=== PATIENT | male | born 1960 | race African-American/Black ===

== ENCOUNTER 2017-04-22 12:56 | Inpatient (IN) | payer OTHER ==
[2017-04-22 18:14] VITALS: BMI 34.2
--- NOTE | 2017-04-22 21:14 | HP ---
CIWA Score - CIWA Score Nausea/Vomitin-No Nausea/No Vomiting Muscle Tremors: 2 Anxiety: 3 Agitation: 2 Paroxysmal Sweats: 3 Orientation: 1-Uncertain about Date Tacttile Disturbances: 1-Very Mild Itch/Numbness Auditory Disturbances: 0-None Visual Disturbances: 0-None Headache: 0-None Present CIWA-Ar Total Score: 12 Admission ROS BHS - HPI Chief Complaint: WITHDRAWAL SYMPTOMS Allergies/Adverse Reactions: Allergies Allergy/AdvReac Type Severity Reaction Status Date / Time No Known Allergies Allergy Verified 04/22/17 21:10 History of Present Illness: 57 Y.O. MAN WITH AN EXTENSIVE HISTORY OF ALCOHOL AND COCAINE DEPENDENCE IS HERE SEEKING DETOX. HE REPORTS HE COMPLETED DETOX AT [facility] 8 MONTHS AGO BUT STRUGGLES TO MAINTAIN HIS SOBRIETY AND DOES NOT HAVE A SIGNIFICANT PERIOD OF SOBRIETY. Exam Limitations: No Limitations - Ebola screening Have you traveled outside of the country in the last 21 days: No Have you had contact with anyone from an Ebola affected area: No Have you been sick,other than usual withdrawal symptoms: No - Review of Systems Constitutional: Loss of Appetite, Night Sweats, Unintentional Wgt. Loss EENT: reports: Double Vision, Tearing, Nose Congestion Respiratory: reports: Cough, Shortness of Breath Cardiac: reports: No Symptoms Reported GI: reports: No Symptoms Reported : reports: No Symptoms Reported Musculoskeletal: reports: No Symptoms Reported Integumentary: reports: No Symptoms Reported Neuro: reports: No Symptoms reported Endocrine: reports: No Symptoms Reported Hematology: reports: No Symptoms Reported Psychiatric: reports: Judgement Intact, Mood/Affect Appropiate Other Systems: Reviewed and Negative Patient History - Patient Medical History Hx Anemia: No Hx Asthma: No Hx Chronic Obstructive Pulmonary Disease (COPD): No Hx Cancer: No Hx Cardiac Disorders: No Hx Congestive Heart Failure: No Hx Hypertension: Yes (ON MEDS) Hx Hypercholesterolemia: No Hx Pacemaker: No HX Cerebrovascular Accident: No Hx Seizures: No Hx Dementia: No Hx Diabetes: No Hx Gastrointestinal Disorders: No Hx Liver Disease: No Hx Genitourinary Disorders: No Hx Sexually Transmitted Disorders: No Hx Renal Disease (ESRD): No Hx Thyroid Disease: No Hx Human Immunodeficiency Virus (HIV): No Hx Hepatitis C: No Hx Depression: No Hx Suicide Attempt: No Hx Bipolar Disorder: Yes Hx Schizophrenia: No - Patient Surgical History Past Surgical History: No - PPD History Previous Implant?: Yes Documented Results: Negative w/o proof PPD to be Administered?: Yes - Reproductive History Patient is a Female of Child Bearing Age (11 -55 yrs old): No - Smoking Cessation Smoking history: Current every day smoker Have you smoked in the past 12 months: Yes Initiated information on smoking cessation: Yes 'Breaking Loose' booklet given: 04/22/17 - Substance & Tx. History Hx Alcohol Use: Yes Hx Substance Use: Yes Substance Use Type: Alcohol, Cocaine Hx Substance Use Treatment: Yes ([facility]: September,) - Substances Abused Alcohol Route: Oral Frequency: Daily Amount used: 2 PINTS OF LIQUOR Age of first use: 22 Date of Last Use: 04/22/17 Cocaine Route: Inhalation Frequency: Daily Amount used: $150 Age of first use: 22 Date of Last Use: 04/18/17 Family Disease History - Family Disease History Family History: Denies Admission Physical Exam [facility] - Vital Signs Vital Signs: Vital Signs - 24 hr 04/22/17 18:13 Temperature 96.8 F L Pulse Rate 70 Respiratory 18 Rate Blood Pressure 148/74 - Physical General Appearance: Yes: Nourished, Appropriately Dressed, Anxious HEENTM: Yes: Hearing grossly Normal, Normal ENT Inspection, Normocephalic, Normal Voice Respiratory: Yes: Chest Non-Tender, Lungs Clear, Normal Breath Sounds, No Respiratory Distress, No Accessory Muscle Use Neck: Yes: No masses,lesions,Nodules Breast: Yes: Breast Exam Deferred Cardiology: Yes: Regular Rhythm, Regular Rate Abdominal: Yes: Normal Bowel Sounds, Non Tender, Flat, Soft Genitourinary: Yes: Other (NO COMPLAINTS REPORTED) Back: Yes: Normal Inspection Musculoskeletal: Yes: full range of Motion, Gait Steady Extremities: Yes: Normal Capillary Refill, Normal Inspection, Normal Range of Motion, Non-Tender 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, Alert, Motor Strength 5/5, Normal Mood /Affect, Normal Response Integumentary: Yes: Normal Color, Dry, Warm Lymphatic: Yes: Within Normal Limits - Diagnostic (1) Alcohol dependence with uncomplicated withdrawal Current Visit: Yes Status: Chronic (2) Cocaine dependence, uncomplicated Current Visit: Yes Status: Chronic (3) Hypertension Current Visit: Yes Status: Chronic (4) Nicotine dependence Current Visit: Yes Status: Chronic Cleared for Admission [facility] - Detox or Rehab [facility] Level of Care: Medically Managed Detox Regimen/Protocol: Librium [facility] Breath Alcohol Content Breath Alcohol Content: 0 Urine Drug Screen - Results Drug Screen Negative: No Urine Drug Screen Results: ERMA-Cocaine
[2017-04-22] MEDS ORDERED: MENTHOL/PHENOL 1 EACH UD MM PRN (21:38)
[2017-04-22] MEDS ORDERED: guaiFENesin/D-METHORPHAN HB 10 ML UNIT-DOSE CUPS PO PRN (21:38)
[2017-04-22] MEDS ORDERED: LOPERAMIDE HCL 2 MG CAPSULE PO PRN (21:38)
[2017-04-22] MEDS ORDERED: chlordiazePOXIDE HCL 25 MG CAPSULE PO PRN (21:38)
[2017-04-22] MEDS ORDERED: MAG HYDROX/AL HYDROX/SIMETH 30 ML UNIT-DOSE CUP PO PRN (21:38)
[2017-04-22] MEDS ORDERED: MAGNESIUM HYDROX 2400MG/30ML ORAL SUSPENSION 30 ML CUP PO PRN (21:38)
[2017-04-22] MEDS ORDERED: IBUPROFEN 400 MG TABLET (FP) PO PRN (21:38)
[2017-04-22] MEDS ORDERED: MAGNESIUM CITRATE 300 ML BOTTLE PO PRN (21:38)
[2017-04-22] MEDS ORDERED: hydrOXYzine PAMOATE 50 MG CAPSULE (FP) PO PRN (21:38)
[2017-04-22] MEDS ORDERED: P-EPHED 60MG/TRIPROLIDI 2.5MG TABLET PO PRN (21:38)
[2017-04-22] MEDS ORDERED: ACETAMINOPHEN 325 MG TABLET (FP) PO PRN (21:38)
[2017-04-23] MEDS: THIAMINE HCL 100 MG TABLET (FP) PO SCH ×2 (00:08→22:46)
[2017-04-23] MEDS: chlordiazePOXIDE HCL 25 MG CAPSULE PO SCH ×5 (00:51→22:47)
[2017-04-23] MEDS: PRENATAL VITAMINS W/ FOLIC ACID TABLET (FP) PO SCH (10:39)
[2017-04-23] MEDS: ENALAPRIL MALEATE 10 MG TABLET (FP) PO SCH (10:39)
[2017-04-23 10:50] LABS: CHLORIDE 106 mmol/L (98-107); SODIUM 143 mmol/L (136-145)
[2017-04-23 10:51] LABS: HEMATOCRIT 40.6 % (35.4-49); HEMOGLOBIN 13.1 GM/dL (11.7-16.9); MCHC 32.3 g/dl (32.0-35.9); MEAN CELL VOLUME 86.9 fl (80-96); MEAN PLT VOLUME 8.1 fl (7.5-11.1); PLATELET COUNT 122 K/MM3 (134-434); RBC 4.67 M/mm3 (4.00-5.60); RDW 13.6 % (11.9-15.9); WHITE BLOOD COUNT 4.2 K/mm3 (4.0-10.0)
[2017-04-23 10:59] LABS: ALBUMIN 3.1 g/dl (3.4-5.0); ALK PHOS 72 U/L (45-117); ANION GAP 8 (8-16); BILIRUBIN,TOTAL 0.5 mg/dL (0.2-1.0); BLOOD UREA NITROGEN 12 mg/dL (7-18); CO2 29 mmol/L (21-32); CREATININE 1.1 mg/dL (0.7-1.3); GLUCOSE,RANDOM 80 mg/dL (74-106); SGOT/AST 19 U/L (15-37); SGPT/ALT 23 U/L (12-78); TOT PROT 6.1 g/dl (6.4-8.2)
--- NOTE | 2017-04-23 13:10 | CONSULT ---
[facility] Psychiatric Consult - Data Date of interview: 04/23/17 Admission source: [facility] Identifying data: First admission to [facility] for this 57 y/o AA male seeking detox treatment on for alcohol and cocaine dependence.Patient is single, father of one,homeless,unemployed and supported on SSI benefits. Substance Abuse History: Discussed with patient.Confirmed.See details in current [facility] report : Smoking history: Current every day smoker. Have you smoked in the past 12 months: Yes. Initiated information on smoking cessation: Yes. 'Breaking Loose' booklet given: 04/22/17. - Substance & Tx. History. Hx Alcohol Use: Yes. Hx Substance Use: Yes. Substance Use Type: Alcohol, Cocaine. Hx Substance Use Treatment: Yes ([facility]: September,). - Substances Abused. Alcohol. Route: Oral. Frequency: Daily. Amount used: 2 PINTS OF LIQUOR. Age of first use: 22. Date of Last Use: 04/22/17. Cocaine. Route: Inhalation. Frequency: Daily. Amount used: $150. Age of first use: 22. Date of Last Use: 04/18/17 Medical History: Bronchial asthma and hypertension. Psychiatric History: No reported history of psychiaric hospitalizations.Patient reports the diagnosis of Bipolar Disorder.Sees a psychiatrist at the [facility] in [facility].Medicated with abilify 10 mg/day + remeron 45 mg/hs (as per self-report).Last took medications three days ago.Mr Grimaldo denies history of suicide attempts. Physical/Sexual Abuse/Trauma History: Patient denies. Additional Comment: Urine Drug Screen Results: ERMA-Cocaine.Noted. Mental Status Exam - Mental Status Exam Alert and Oriented to: Time, Place Cognitive Function: Good Patient Appearance: Well Groomed Mood: Nervous (dysphoric), Withdrawn, Anxious Affect: Mood Congruent Patient Behavior: Fatigued, Cooperative Speech Pattern: Clear Voice Loudness: Normal Thought Process: Intact, Goal Oriented Thought Disorder: Not Present Hallucinations: Denies Suicidal Ideation: Denies Homicidal Ideation: Denies Insight/Judgement: Poor Sleep: Poorly, Difficulty falling asleep Appetite: Good Muscle strength/Tone: Normal Gait/Station: Normal Psychiatric Findings - Problem List ([place] 1, 2,3) (1) Alcohol dependence with uncomplicated withdrawal Current Visit: Yes Status: Acute (2) Cocaine dependence, uncomplicated Current Visit: Yes Status: Acute (3) Nicotine dependence Current Visit: Yes Status: Acute (4) Substance induced mood disorder Current Visit: Yes Status: Acute (5) Bipolar disorder Current Visit: Yes Status: Acute Comment: Self-report.On abilify.Current OPD care at the [facility] in [facility]. (6) Insomnia Current Visit: Yes Status: Acute - Initial Treatment Plan Initial Treatment Plan: Psychoeducation.Sleep hygiene discussed with patient.Detoxification in progress.Medications : remeron 15 mg po hs (reduced) + abilify 10 mg po daily.Side effects/benefits of both drugs are reviewed with the patient.Titration of remeron to follow if clinically indicated.Mr Grimaldo consents (verbally) to this plan of care.Observation.Pharmacy claims are revisited : NOT informative.
--- NOTE | 2017-04-23 13:46 | PN ---
S CIWA - CIWA Score Nausea/Vomitin Muscle Tremors: 2 Anxiety: 2 Agitation: 2 Paroxysmal Sweats: 2 Orientation: 0-Oriented Tacttile Disturbances: 2-Mild Itch/Numbness/Burn Auditory Disturbances: 0-None Visual Disturbances: 1-Very Mild Sensitivity Headache: 3-Moderate CIWA-Ar Total Score: 16 S Progress Note (SOAP) Subjective: Interrupted sleep, generalized body aches Objective: 04/23/17 13:45 Vital Signs - 8 hr 04/23/17 04/23/17 06:56 09:32 Temperature 98.2 F 96.1 F L Pulse Rate 81 73 Respiratory 18 20 Rate Blood Pressure 136/83 149/84 Laboratory Last Values WBC 4.2 K/mm3 (4.0-10.0) 04/23/17 08:00 RBC 4.67 M/mm3 (4.00-5.60) 04/23/17 08:00 Hgb 13.1 GM/dL (11.7-16.9) 04/23/17 08:00 Hct 40.6 % (35.4-49) 04/23/17 08:00 MCV 86.9 fl (80-96) 04/23/17 08:00 MCH 28.0 pg (25.7-33.7) 04/23/17 08:00 MCHC 32.3 g/dl (32.0-35.9) 04/23/17 08:00 RDW 13.6 % (11.9-15.9) 04/23/17 08:00 Plt Count 122 K/MM3 (134-434) L 04/23/17 08:00 MPV 8.1 fl (7.5-11.1) 04/23/17 08:00 Sodium 143 mmol/L (136-145) 04/23/17 08:00 Potassium 4.0 mmol/L (3.5-5.1) 04/23/17 08:00 Chloride 106 mmol/L (98-107) 04/23/17 08:00 Carbon Dioxide 29 mmol/L (21-32) 04/23/17 08:00 Anion Gap 8 (8-16) 04/23/17 08:00 BUN 12 mg/dL (7-18) 04/23/17 08:00 Creatinine 1.1 mg/dL (0.7-1.3) 04/23/17 08:00 Creat Clearance w eGFR > 60 (>60) 04/23/17 08:00 Random Glucose 80 mg/dL (74-106) 04/23/17 08:00 Calcium 8.0 mg/dL (8.5-10.1) L 04/23/17 08:00 Total Bilirubin 0.5 mg/dL (0.2-1.0) 04/23/17 08:00 AST 19 U/L (15-37) 04/23/17 08:00 ALT 23 U/L (12-78) 04/23/17 08:00 Alkaline Phosphatase 72 U/L (45-117) 04/23/17 08:00 Total Protein 6.1 g/dl (6.4-8.2) L 04/23/17 08:00 Albumin 3.1 g/dl (3.4-5.0) L 04/23/17 08:00 RPR Titer Nonreactive (NONREACTIVE) 04/23/17 08:00 Labs noted Assessment: 04/23/17 13:45 Withdrawal sx Plan: Continue detox
--- NOTE | 2017-04-23 16:43 | EKG ---
Test Reason : Blood Pressure : / mmHG Vent. Rate : 079 BPM Atrial Rate : 079 BPM P-R Int : 152 ms QRS Dur : 084 ms QT Int : 372 ms P-R-T Axes : 071 057 058 degrees QTc Int : 426 ms NORMAL SINUS RHYTHM MINIMAL VOLTAGE CRITERIA FOR LVH, MAY BE NORMAL VARIANT BORDERLINE ECG NO PREVIOUS ECGS AVAILABLE Confirmed by ANTONIO THOMAS MD ([id number]) on 04/23/2017 4:43:34 PM Referred By: Confirmed By:ANTONIO THOMAS MD
[2017-04-23] MEDS: MIRTAZAPINE 15 MG TABLET (FP) PO SCH (22:47)
[2017-04-23 22:56] LABS: URINE APPEARANCE CLEAR; URINE BILIRUBIN NEGATIVE (NEGATIVE); URINE BLOOD NEGATIVE (NEGATIVE); URINE COLOR LTYELLOW; URINE GLUCOSE (UA) NEGATIVE (NEGATIVE); URINE KETONE NEGATIVE (NEGATIVE); URINE LEUK ESTERASE NEGATIVE (NEGATIVE); URINE NITRITE NEGATIVE (NEGATIVE); URINE PROTEIN NEGATIVE (NEGATIVE); URINE UROBILINOGEN NEGATIVE mg/dL (0.2-1.0)
[2017-04-24] MEDS: chlordiazePOXIDE HCL 25 MG CAPSULE PO SCH ×3 (05:27→17:35)
[2017-04-24] MEDS: ARIPiprazole 10 MG TABLET PO SCH (10:41)
[2017-04-24] MEDS: PRENATAL VITAMINS W/ FOLIC ACID TABLET (FP) PO SCH (10:41)
[2017-04-24] MEDS: ENALAPRIL MALEATE 10 MG TABLET (FP) PO SCH (10:41)
--- NOTE | 2017-04-24 18:58 | PN ---
S CIWA - CIWA Score Nausea/Vomitin-No Nausea/No Vomiting Muscle Tremors: 4-Moderate,w/Arms Extend Anxiety: 3 Agitation: 2 Paroxysmal Sweats: 3 Orientation: 2-Disoriented Date<2 days Tacttile Disturbances: 0-None Auditory Disturbances: 1-Very Mild Visual Disturbances: 3-Moderate Sensitivity Headache: 0-None Present CIWA-Ar Total Score: 18 BHS Progress Note (SOAP) Subjective: Sweating, Tremors, Interrupted Sleep. Objective: PT. A & O X 2 (UNCERTAIN ABOUT CURRENT DAY /DATE). NO ACUTE DISTRESS. 04/24/17 18:56 Vital Signs Temperature 97.0 F L 04/24/17 18:20 Pulse Rate 71 04/24/17 18:20 Respiratory Rate 18 04/24/17 18:20 Blood Pressure 134/74 04/24/17 18:20 O2 Sat by Pulse Oximetry (%) Laboratory Tests 04/23/17 04/23/17 04/23/17 08:00 08:00 08:00 WBC 4.2 RBC 4.67 Hgb 13.1 Hct 40.6 MCV 86.9 MCH 28.0 MCHC 32.3 RDW 13.6 Plt Count 122 L MPV 8.1 Sodium 143 Potassium 4.0 Chloride 106 Carbon Dioxide 29 Anion Gap 8 BUN 12 Creatinine 1.1 Creat Clearance w eGFR > 60 Random Glucose 80 Calcium 8.0 L Total Bilirubin 0.5 AST 19 ALT 23 Alkaline Phosphatase 72 Total Protein 6.1 L Albumin 3.1 L Urine Color Urine Appearance Urine pH Ur Specific [place] Urine Protein Urine Glucose (UA) Urine Ketones Urine Blood Urine Nitrite Urine Bilirubin Urine Urobilinogen Ur Leukocyte Esterase RPR Titer Nonreactive 04/23/17 17:14 WBC RBC Hgb Hct MCV MCH MCHC RDW Plt Count MPV Sodium Potassium Chloride Carbon Dioxide Anion Gap BUN Creatinine Creat Clearance w eGFR Random Glucose Calcium Total Bilirubin AST ALT Alkaline Phosphatase Total Protein Albumin Urine Color Ltyellow Urine Appearance Clear Urine pH 7.0 Ur Specific [place] 1.015 Urine Protein Negative Urine Glucose (UA) Negative Urine Ketones Negative Urine Blood Negative Urine Nitrite Negative Urine Bilirubin Negative Urine Urobilinogen Negative Ur Leukocyte Esterase Negative RPR Titer LABS NOTED. Assessment: 04/24/17 18:56 WITHDRAWAL SYMPTOMS. Plan: CONTINUE DETOX. INCREASE DAILY PO FLUID INTAKE.
[2017-04-24] MEDS: MIRTAZAPINE 15 MG TABLET (FP) PO SCH (22:38)
[2017-04-24] MEDS: chlordiazePOXIDE 5 MG CAPSULE PO SCH (22:38)
[2017-04-24] MEDS: THIAMINE HCL 100 MG TABLET (FP) PO SCH (22:38)
[2017-04-25] MEDS: chlordiazePOXIDE 5 MG CAPSULE PO SCH ×3 (06:09→17:11)
[2017-04-25] MEDS: ENALAPRIL MALEATE 10 MG TABLET (FP) PO SCH (10:26)
[2017-04-25] MEDS: PRENATAL VITAMINS W/ FOLIC ACID TABLET (FP) PO SCH (10:26)
[2017-04-25] MEDS: ARIPiprazole 10 MG TABLET PO SCH (10:26)
--- NOTE | 2017-04-25 16:33 | PN ---
BHS Progress Note (SOAP) Subjective: sleepy fatigued Objective: 04/25/17 16:32 Vital Signs Temperature 97.6 F 04/25/17 14:10 Pulse Rate 64 04/25/17 14:10 Respiratory Rate 18 04/25/17 14:10 Blood Pressure 143/78 04/25/17 14:10 O2 Sat by Pulse Oximetry (%) Assessment: 04/25/17 16:32 withdrawal sx Plan: continue detox
[2017-04-25] MEDS: MIRTAZAPINE 15 MG TABLET (FP) PO SCH (22:15)
[2017-04-25] MEDS: chlordiazePOXIDE HCL 10 MG CAPSULE PO SCH (22:15)
[2017-04-25] MEDS: THIAMINE HCL 100 MG TABLET (FP) PO SCH (22:15)
[2017-04-26] MEDS: chlordiazePOXIDE HCL 10 MG CAPSULE PO SCH ×3 (05:24→17:25)
[2017-04-26] MEDS ORDERED: ONDANSETRON *ODT* 4 MG TABLET SL PRN (10:16)
[2017-04-26] MEDS: ARIPiprazole 10 MG TABLET PO SCH (10:23)
[2017-04-26] MEDS: PRENATAL VITAMINS W/ FOLIC ACID TABLET (FP) PO SCH (10:24)
[2017-04-26] MEDS: ENALAPRIL MALEATE 10 MG TABLET (FP) PO SCH (10:24)
--- NOTE | 2017-04-26 13:41 | PN ---
BHS Progress Note (SOAP) Subjective: Stomach Cramping, Vomiting, Body Aches. Objective: PT. A & O X 2 (UNCERTAIN ABOUT CURRENT DAY / DATE). PT. OBSERVED AMBULATING ON UNIT. NO ACUTE DISTRESS. 04/26/17 13:35 Vital Signs Temperature 95.3 F L 04/26/17 13:24 Pulse Rate 75 04/26/17 13:24 Respiratory Rate 75 H 04/26/17 13:24 Blood Pressure 154/81 04/26/17 13:24 O2 Sat by Pulse Oximetry (%) Laboratory Tests 04/23/17 04/23/17 04/23/17 08:00 08:00 08:00 WBC 4.2 RBC 4.67 Hgb 13.1 Hct 40.6 MCV 86.9 MCH 28.0 MCHC 32.3 RDW 13.6 Plt Count 122 L MPV 8.1 Sodium 143 Potassium 4.0 Chloride 106 Carbon Dioxide 29 Anion Gap 8 BUN 12 Creatinine 1.1 Creat Clearance w eGFR > 60 Random Glucose 80 Calcium 8.0 L Total Bilirubin 0.5 AST 19 ALT 23 Alkaline Phosphatase 72 Total Protein 6.1 L Albumin 3.1 L Urine Color Urine Appearance Urine pH Ur Specific [place] Urine Protein Urine Glucose (UA) Urine Ketones Urine Blood Urine Nitrite Urine Bilirubin Urine Urobilinogen Ur Leukocyte Esterase RPR Titer Nonreactive 04/23/17 17:14 WBC RBC Hgb Hct MCV MCH MCHC RDW Plt Count MPV Sodium Potassium Chloride Carbon Dioxide Anion Gap BUN Creatinine Creat Clearance w eGFR Random Glucose Calcium Total Bilirubin AST ALT Alkaline Phosphatase Total Protein Albumin Urine Color Ltyellow Urine Appearance Clear Urine pH 7.0 Ur Specific [place] 1.015 Urine Protein Negative Urine Glucose (UA) Negative Urine Ketones Negative Urine Blood Negative Urine Nitrite Negative Urine Bilirubin Negative Urine Urobilinogen Negative Ur Leukocyte Esterase Negative RPR Titer LABS NOTED. Assessment: 04/26/17 13:37 WITHDRAWAL SYMPTOMS. Plan: CONTINUE DETOX.
[2017-04-26] MEDS: THIAMINE HCL 100 MG TABLET (FP) PO SCH (22:03)
[2017-04-26] MEDS: MIRTAZAPINE 15 MG TABLET (FP) PO SCH (22:03)
[2017-04-27] MEDS: PRENATAL VITAMINS W/ FOLIC ACID TABLET (FP) PO SCH (09:29)
[2017-04-27] MEDS: ENALAPRIL MALEATE 10 MG TABLET (FP) PO SCH (09:29)
[2017-04-27] MEDS: ARIPiprazole 10 MG TABLET PO SCH (09:29)
--- NOTE | 2017-04-27 12:11 | DS ---
[facility] Detox Discharge Summary Admission Date: 04/22/17 Discharge Date: 04/27/17 - History Present History: Alcohol Dependence, Cocaine Dependence Additional Comments: [facility]. PATIENT WAS DISCHARGED FROM DETOX UNIT IN STABLE MEDICAL CONDITION. Pertinent Past History: HTN, Insomnia, Bipolar Disorder, Nicotine Dependence. - Physical Exam Results Vital Signs: Vital Signs Temperature 97.0 F L 04/27/17 09:27 Pulse Rate 72 04/27/17 09:27 Respiratory Rate 18 04/27/17 09:27 Blood Pressure 150/83 04/27/17 09:27 O2 Sat by Pulse Oximetry (%) Pertinent Admission Physical Exam Findings: WITHDRAWAL SYMPTOMS. Laboratory Tests 04/23/17 04/23/17 04/23/17 08:00 08:00 08:00 WBC 4.2 RBC 4.67 Hgb 13.1 Hct 40.6 MCV 86.9 MCH 28.0 MCHC 32.3 RDW 13.6 Plt Count 122 L MPV 8.1 Sodium 143 Potassium 4.0 Chloride 106 Carbon Dioxide 29 Anion Gap 8 BUN 12 Creatinine 1.1 Creat Clearance w eGFR > 60 Random Glucose 80 Calcium 8.0 L Total Bilirubin 0.5 AST 19 ALT 23 Alkaline Phosphatase 72 Total Protein 6.1 L Albumin 3.1 L Urine Color Urine Appearance Urine pH Ur Specific [place] Urine Protein Urine Glucose (UA) Urine Ketones Urine Blood Urine Nitrite Urine Bilirubin Urine Urobilinogen Ur Leukocyte Esterase RPR Titer Nonreactive 04/23/17 17:14 WBC RBC Hgb Hct MCV MCH MCHC RDW Plt Count MPV Sodium Potassium Chloride Carbon Dioxide Anion Gap BUN Creatinine Creat Clearance w eGFR Random Glucose Calcium Total Bilirubin AST ALT Alkaline Phosphatase Total Protein Albumin Urine Color Ltyellow Urine Appearance Clear Urine pH 7.0 Ur Specific [place] 1.015 Urine Protein Negative Urine Glucose (UA) Negative Urine Ketones Negative Urine Blood Negative Urine Nitrite Negative Urine Bilirubin Negative Urine Urobilinogen Negative Ur Leukocyte Esterase Negative RPR Titer LABS NOTED. - Treatment Hospital Course: Detox Protocol Followed, Detoxed Safely, Responded well, Discharged Condition Good, Rehab Referral Accepted Patient has Accepted a Rehab Referral to: [facility] . - Medication Discharge Medications: Ambulatory Orders Aripiprazole [Abilify -] 10 mg PO DAILY 04/22/17 Enalapril Maleate [Vasotec -] PO DAILY 04/22/17 Mirtazapine [Remeron [DO NOT STOCK]] 45 mg PO DAILY 04/22/17 Aripiprazole [Abilify -] 10 mg PO DAILY #30 tablet 04/23/17 Mirtazapine [Remeron -] 15 mg PO HS #30 tablet 04/23/17 - Diagnosis (1) Alcohol dependence with uncomplicated withdrawal Current Visit: Yes Status: Acute (2) Cocaine dependence, uncomplicated Current Visit: Yes Status: Acute (3) Nicotine dependence Current Visit: Yes Status: Acute Qualifiers: Nicotine product type: cigarettes Substance use status: uncomplicated Qualified Code(s): F17.210 - Nicotine dependence, cigarettes, uncomplicated (4) Hypertension Current Visit: Yes Status: Chronic Qualifiers: Hypertension type: unspecified Qualified Code(s): I10 - Essential (primary ) hypertension (5) Bipolar disorder Current Visit: Yes Status: Acute Qualifiers: Active/Remission status: remission status unspecified Qualified Code(s): F31.9 - Bipolar disorder, unspecified (6) Insomnia Current Visit: Yes Status: Acute Qualifiers: Insomnia type: unspecified Qualified Code(s): G47.00 - Insomnia, unspecified (7) Substance induced mood disorder Current Visit: Yes Status: Acute - AMA Did Patient Leave Against Medical Advice: No
--- NOTE | 2017-04-27 13:20 | HP ---
[facility] Rehab Assess/Revision - Admission History Admitted to Rehab from: [facility] Date of Admission to Rehab: 04/27/2017. - Vital signs Vital Signs: Vital Signs Period Temp Pulse Resp BP Sys/Maya Pulse Ox Last 24 Hr 95.3 F-98.7 F 57-77 18-75 127-154/65-83 - Findings Detox History & Physical reviewed: Yes Concur with findings: Yes Comments/Additional Findings: PATIENT'S MEDICAL / MEDICATION HISTORY REVIWED PRIOR TO DISCHARGE FROM DETOX UNIT. PATIENT WAS DISCHARGED FROM DETOX UNIT TO BE TAKEN TO REHAB UNIT IN STABLE MEDICAL CONDITION. Inpatient Rehab Admission - Initial Determination Are CD services needed?: Yes Free of communicable disease: Yes Not in need of hospitalization: Yes - Rehab Admission Criteria Previous failed treatment: Yes Comorbidities: Yes Patient is meeting Inpatient Rehab admission criteria:: Yes
[2017-04-27] MEDS: MIRTAZAPINE 15 MG TABLET (FP) PO SCH (21:47)
[2017-04-27] MEDS: THIAMINE HCL 100 MG TABLET (FP) PO SCH (21:47)
[2017-04-28] MEDS: ARIPiprazole 10 MG TABLET PO SCH (10:28)
[2017-04-28] MEDS: ENALAPRIL MALEATE 10 MG TABLET (FP) PO SCH (10:28)
[2017-04-28] MEDS: PRENATAL VITAMINS W/ FOLIC ACID TABLET (FP) PO SCH (10:28)
--- NOTE | 2017-04-28 14:28 | HP ---
Psychiatrist Admission - Data Date of interview: 04/28/17 Admission source: [facility] Identifying data: [facility] for this 57 year old AA male who is single a father of one, currenlty homeless and unemployed, supported on SSI benefits. Medical History: HTN, Bronchial asthma, smokes cigarettes 1 PPD. Psychiatric History: Patient reports first psychiatric treatment in his childhood, reports he was acting out at the school and was treated with Thorazine, states he wasadmitted twice as a kid. Reports no other psychiatric hospitalizations, was diagnosed as bipolar disorder and sees the psychiatrist at [facility] in [facility] and currently on [id number] mg daily and Remeron 45 mg po hs. Sees by , continue Abilify 10 mg po daily and Remeron 15 mg po hs.Denies history of suicdal attempts. Physical/Sexual Abuse/Trauma History: Denies history of sexual, physical and verbal abuse. Vital Signs: Vital Signs - 24 hr 04/28/17 04/28/17 04/28/17 00:58 03:30 07:24 Temperature 98.5 F Pulse Rate 69 Respiratory 18 18 18 Rate Blood Pressure 149/80 04/28/17 09:23 Temperature Pulse Rate 72 Respiratory 18 Rate Blood Pressure 143/83 Allergies/Adverse Reactions: Allergies Allergy/AdvReac Type Severity Reaction Status Date / Time No Known Allergies Allergy Verified 04/27/17 14:23 Date of last physical exam: 04/22/17 Concur with the findings of this exam: Yes - Substance Abuse/Tx History Hx Alcohol Use: Yes (2 pints of liquor, age of first use 22 ) Hx Substance Use: Yes Substance Use Type: Cocaine (age of first use 22, daily $150) Hx Substance Use Treatment: Yes (detox at [facility]) Mental Status Exam - Mental Status Exam Alert and Oriented to: Time, Place, Person Cognitive Function: Good Patient Appearance: Well Groomed Mood: Hopeful Affect: Appropriate, Mood Congruent Patient Behavior: Appropriate, Cooperative Speech Pattern: Clear, Appropriate Voice Loudness: Normal Thought Process: Intact, Goal Oriented Thought Disorder: Not Present Hallucinations: Denies Suicidal Ideation: Denies Homicidal Ideation: Denies Insight/Judgement: Fair Sleep: Fair Appetite: Fair Muscle strength/Tone: Normal Gait/Station: Normal Psychiatric Findings - Problem List ([place] 1, 2,3) (1) Alcohol dependence Current Visit: Yes Status: Acute (2) Cocaine dependence Current Visit: Yes Status: Acute (3) Bipolar disorder Current Visit: Yes Status: Acute Qualifiers: Active/Remission status: remission status unspecified Qualified Code(s): F31.9 - Bipolar disorder, unspecified Comment: Self-report.On abistefani.Current OPD care at the [facility] in [facility]. (4) Nicotine dependence Current Visit: Yes Status: Acute Qualifiers: Nicotine product type: cigarettes Substance use status: uncomplicated Qualified Code(s): F17.210 - Nicotine dependence, cigarettes, uncomplicated (5) Hypertension Current Visit: Yes Status: Chronic Qualifiers: Hypertension type: unspecified Qualified Code(s): I10 - Essential (primary ) hypertension - Initial Treatment Plan Initial Treatment Plan: will continue current medications, monitor progress as needed.
[2017-04-28] MEDS: THIAMINE HCL 100 MG TABLET (FP) PO SCH (21:48)
[2017-04-28] MEDS: MIRTAZAPINE 15 MG TABLET (FP) PO SCH (21:49)
[2017-04-29] MEDS: ENALAPRIL MALEATE 10 MG TABLET (FP) PO SCH (10:14)
[2017-04-29] MEDS: PRENATAL VITAMINS W/ FOLIC ACID TABLET (FP) PO SCH (10:14)
[2017-04-29] MEDS: ARIPiprazole 10 MG TABLET PO SCH (10:14)
[2017-04-29] MEDS: MIRTAZAPINE 15 MG TABLET (FP) PO SCH (21:38)
[2017-04-29] MEDS: THIAMINE HCL 100 MG TABLET (FP) PO SCH (21:38)
[2017-04-30] MEDS: ENALAPRIL MALEATE 10 MG TABLET (FP) PO SCH (10:23)
[2017-04-30] MEDS: PRENATAL VITAMINS W/ FOLIC ACID TABLET (FP) PO SCH (10:23)
[2017-04-30] MEDS: ARIPiprazole 10 MG TABLET PO SCH (10:23)
[2017-04-30] MEDS: THIAMINE HCL 100 MG TABLET (FP) PO SCH (21:26)
[2017-04-30] MEDS: MIRTAZAPINE 15 MG TABLET (FP) PO SCH (21:27)
[2017-05-01] MEDS: PRENATAL VITAMINS W/ FOLIC ACID TABLET (FP) PO SCH (10:29)
[2017-05-01] MEDS: ARIPiprazole 10 MG TABLET PO SCH (10:29)
[2017-05-01] MEDS: ENALAPRIL MALEATE 10 MG TABLET (FP) PO SCH (10:29)
[2017-05-01] MEDS: THIAMINE HCL 100 MG TABLET (FP) PO SCH (21:26)
[2017-05-01] MEDS: MIRTAZAPINE 15 MG TABLET (FP) PO SCH (21:26)
[2017-05-02] MEDS: PRENATAL VITAMINS W/ FOLIC ACID TABLET (FP) PO SCH (10:31)
[2017-05-02] MEDS: ARIPiprazole 10 MG TABLET PO SCH (10:31)
[2017-05-02] MEDS: ENALAPRIL MALEATE 10 MG TABLET (FP) PO SCH (10:31)
[2017-05-02] MEDS: MIRTAZAPINE 15 MG TABLET (FP) PO SCH (21:48)
[2017-05-02] MEDS: THIAMINE HCL 100 MG TABLET (FP) PO SCH (21:48)
[2017-05-03] MEDS: PRENATAL VITAMINS W/ FOLIC ACID TABLET (FP) PO SCH (10:20)
[2017-05-03] MEDS: ENALAPRIL MALEATE 10 MG TABLET (FP) PO SCH (10:21)
[2017-05-03] MEDS: ARIPiprazole 10 MG TABLET PO SCH (10:21)
--- NOTE | 2017-05-03 10:44 | PN ---
Psychiatric Progress Note Vital Signs: Vital Signs Period Temp Pulse Resp BP Sys/Maya Pulse Ox Last 24 Hr 98.0 F 69 18-20 145/83 Date of Session: 05/03/17 Chief Complaint:: progress update HPI: Patient is addressing alcohol, cocaine, nicotine dependence comorbid bipolar I disorder. ROS: HTN, Bronchial asthma medically managed. Current Medications: Active Medications Generic Name Dose Route Start Last Admin Trade Name Freq PRN Reason Stop Dose Admin Acetaminophen 650 mg 04/22/17 21:38 Tylenol - PO Q4H PRN FEVER Al Hydroxide/Mg Hydroxide 30 ml 04/22/17 21:38 Mylanta Oral Suspension - PO Q6H PRN DYSPEPSIA Aripiprazole 10 mg 04/24/17 10:00 05/03/17 10:21 Abilify PO 10 mg DAILY LIAT Administration Enalapril Maleate 10 mg 04/23/17 10:00 05/03/17 10:21 Vasotec - PO 10 mg DAILY LIAT Administration Eucalyptus/Menthol/Phenol/Sorbitol 1 each 04/22/17 21:38 Cepastat Lozenge - MM Q4H PRN SORE THROAT Guaifenesin 10 ml 04/22/17 21:38 Robitussin Dm - PO Q6H PRN COUGH Hydroxyzine Pamoate 50 mg 04/22/17 21:38 Vistaril - PO Q4H PRN AGITATION Ibuprofen 400 mg 04/22/17 21:38 Motrin - PO Q6H PRN PAIN LEVEL 4-6 Loperamide HCl 4 mg 04/22/17 21:38 Imodium - PO Q6H PRN DIARRHEA Magnesium Citrate 300 ml 04/22/17 21:38 Citroma - PO Q48H PRN CONSTIPATION Magnesium Hydroxide 30 ml 04/22/17 21:38 Milk Of Magnesia - PO DAILY PRN CONSTIPATION Ondansetron HCl 4 mg 04/26/17 10:16 Zofran Odt - SL Q8H PRN NAUSEA AND/OR VOMITING Multivit/Folic Acid/Iron 1 tab 04/23/17 10:00 05/03/17 10:20 Vitamins (Sjr) - PO 1 tab DAILY LIAT Administration Pseudoephedrine/Triprolidine 1 combo 04/22/17 21:38 Actifed - PO TID PRN NASAL CONGESTION Quetiapine Fumarate 50 mg 05/03/17 22:00 Seroquel - PO HS LIAT Thiamine HCl 100 mg 04/22/17 22:00 05/02/17 21:48 Vitamin B1 - PO 100 mg HS LIAT Administration Medication(s) Change(s): d/c Remeron, add Seroquel 50 mg po hs Current Side Effect: No Lab tests ordered: No Lab tests reviewed: Yes Provider note:: Patient was seen today, reports has been feeling irritable and unable to sleep at nights, states was on seroquel 200 mg in the past and last took med. about one ago, he feels that remeron not affective and prefers to restart seroquel, Reviewed current medications with the patient, side-effects and benefits discussed, psychoeducations provided, will d/c remeron, restart seroquel 50 mg po hs, will adjust the dosage when indicated. Continue monitor progress. Total face to face time:: 25 Mental Status Exam - Mental Status Exam Alert and Oriented to: Time, Place, Person Cognitive Function: Good Patient Appearance: Well Groomed Mood: Depressed, Sad, Anxious Affect: Appropriate, Mood Congruent Patient Behavior: Appropriate, Cooperative Speech Pattern: Clear, Appropriate Voice Loudness: Normal Thought Process: Intact, Goal Oriented Thought Disorder: Not Present Hallucinations: Denies Suicidal Ideation: Denies Homicidal Ideation: Denies Insight/Judgement: Fair Sleep: Poorly, Difficulty falling asleep Appetite: Fair Muscle strength/Tone: Normal Gait/Station: Normal Psychiatric Treatment Plan - Problem List (1) Alcohol dependence Current Visit: Yes (2) Cocaine dependence Current Visit: Yes (3) Bipolar disorder Current Visit: Yes Qualifiers: Active/Remission status: remission status unspecified Qualified Code(s): F31.9 - Bipolar disorder, unspecified Comment: Self-report.On abilify.Current [facility] care at the [facility] in [facility]. (4) Nicotine dependence Current Visit: Yes Qualifiers: Nicotine product type: cigarettes Substance use status: uncomplicated Qualified Code(s): F17.210 - Nicotine dependence, cigarettes, uncomplicated (5) Hypertension Current Visit: Yes Qualifiers: Hypertension type: unspecified Qualified Code(s): I10 - Essential (primary ) hypertension
[2017-05-03] MEDS: THIAMINE HCL 100 MG TABLET (FP) PO SCH (21:48)
[2017-05-03] MEDS: QUEtiapine FUMARATE 50 MG TABLET PO SCH (21:49)
[2017-05-04] MEDS: ENALAPRIL MALEATE 10 MG TABLET (FP) PO SCH (10:43)
[2017-05-04] MEDS: ARIPiprazole 10 MG TABLET PO SCH (10:43)
[2017-05-04] MEDS: PRENATAL VITAMINS W/ FOLIC ACID TABLET (FP) PO SCH (10:43)
[2017-05-04] MEDS: THIAMINE HCL 100 MG TABLET (FP) PO SCH (21:39)
[2017-05-04] MEDS: QUEtiapine FUMARATE 50 MG TABLET PO SCH (21:39)
[2017-05-05] MEDS: ARIPiprazole 10 MG TABLET PO SCH (10:28)
[2017-05-05] MEDS: PRENATAL VITAMINS W/ FOLIC ACID TABLET (FP) PO SCH (10:28)
[2017-05-05] MEDS: ENALAPRIL MALEATE 10 MG TABLET (FP) PO SCH (10:28)
--- NOTE | 2017-05-05 15:25 | PN ---
Psychiatric Progress Note Vital Signs: Vital Signs Period Temp Pulse Resp BP Sys/Maya Pulse Ox Last 24 Hr 98.3 F 62 16-20 141/78 Date of Session: 05/05/17 Chief Complaint:: progress update. HPI: Patient is addressing alcohol, cocaine, nicotine dependence comorbid bipolar I disorder. ROS: HTN, Bronchial asthma medically managed Current Medications: Active Medications Generic Name Dose Route Start Last Admin Trade Name Freq PRN Reason Stop Dose Admin Acetaminophen 650 mg 04/22/17 21:38 Tylenol - PO Q4H PRN FEVER Al Hydroxide/Mg Hydroxide 30 ml 04/22/17 21:38 Mylanta Oral Suspension - PO Q6H PRN DYSPEPSIA Aripiprazole 10 mg 04/24/17 10:00 05/05/17 10:28 Abilify PO 10 mg DAILY LIAT Administration Enalapril Maleate 10 mg 04/23/17 10:00 05/05/17 10:28 Vasotec - PO 10 mg DAILY LIAT Administration Eucalyptus/Menthol/Phenol/Sorbitol 1 each 04/22/17 21:38 Cepastat Lozenge - MM Q4H PRN SORE THROAT Guaifenesin 10 ml 04/22/17 21:38 Robitussin Dm - PO Q6H PRN COUGH Hydroxyzine Pamoate 50 mg 04/22/17 21:38 Vistaril - PO Q4H PRN AGITATION Ibuprofen 400 mg 04/22/17 21:38 Motrin - PO Q6H PRN PAIN LEVEL 4-6 Loperamide HCl 4 mg 04/22/17 21:38 Imodium - PO Q6H PRN DIARRHEA Magnesium Citrate 300 ml 04/22/17 21:38 Citroma - PO Q48H PRN CONSTIPATION Magnesium Hydroxide 30 ml 04/22/17 21:38 Milk Of Magnesia - PO DAILY PRN CONSTIPATION Ondansetron HCl 4 mg 04/26/17 10:16 Zofran Odt - SL Q8H PRN NAUSEA AND/OR VOMITING Multivit/Folic Acid/Iron 1 tab 04/23/17 10:00 05/05/17 10:28 Vitamins (Sjr) - PO 1 tab DAILY LIAT Administration Pseudoephedrine/Triprolidine 1 combo 04/22/17 21:38 Actifed - PO TID PRN NASAL CONGESTION Quetiapine Fumarate 100 mg 05/05/17 15:13 Seroquel - PO HS LIAT Thiamine HCl 100 mg 04/22/17 22:00 05/04/17 21:39 Vitamin B1 - PO 100 mg HS LIAT Administration Medication(s) Change(s): increase Seroquel 100 mg po hs. Current Side Effect: No Lab tests ordered: No Lab tests reviewed: Yes Provider note:: Patient was seen today, he reports that he unable to sleep, restless walking at nights and thinks a lot, having racing thoughts. He also focused on his personal issues, negavive impact of his addiction over major life areas, being homeless and staying in the shelters. States his main trigger for relapses is money. Supportive therapy provided. Reviewed medications with the patient will increase Seroquel 100 mg po hs, continue to monitor progress. Total face to face time:: 35 Mental Status Exam - Mental Status Exam Alert and Oriented to: Time, Place, Person Cognitive Function: Good Patient Appearance: Well Groomed Mood: Sad, Anxious Affect: Appropriate, Mood Congruent Patient Behavior: Cooperative Speech Pattern: Clear, Appropriate Voice Loudness: Normal Thought Process: Intact Thought Disorder: Not Present Hallucinations: Denies Suicidal Ideation: Denies Homicidal Ideation: Denies Insight/Judgement: Fair Sleep: Poorly, Difficulty falling asleep Appetite: Fair Muscle strength/Tone: Normal Gait/Station: Normal Psychiatric Treatment Plan - Problem List (1) Alcohol dependence Current Visit: Yes (2) Cocaine dependence Current Visit: Yes (3) Bipolar disorder Current Visit: Yes Qualifiers: Active/Remission status: remission status unspecified Qualified Code(s): F31.9 - Bipolar disorder, unspecified Comment: Self-report.On richie.Current OPD care at the [facility] in [facility]. (4) Nicotine dependence Current Visit: Yes Qualifiers: Nicotine product type: cigarettes Substance use status: uncomplicated Qualified Code(s): F17.210 - Nicotine dependence, cigarettes, uncomplicated (5) Hypertension Current Visit: Yes Qualifiers: Hypertension type: unspecified Qualified Code(s): I10 - Essential (primary ) hypertension
[2017-05-05] MEDS: THIAMINE HCL 100 MG TABLET (FP) PO SCH (21:56)
[2017-05-05] MEDS: QUEtiapine FUMARATE 100 MG TABLET (FP) PO SCH (21:57)
[2017-05-06] MEDS: PRENATAL VITAMINS W/ FOLIC ACID TABLET (FP) PO SCH (10:31)
[2017-05-06] MEDS: ARIPiprazole 10 MG TABLET PO SCH (10:31)
[2017-05-06] MEDS: ENALAPRIL MALEATE 10 MG TABLET (FP) PO SCH (10:31)
[2017-05-06] MEDS: THIAMINE HCL 100 MG TABLET (FP) PO SCH (21:36)
[2017-05-06] MEDS: QUEtiapine FUMARATE 100 MG TABLET (FP) PO SCH (21:36)
[2017-05-07] MEDS: PRENATAL VITAMINS W/ FOLIC ACID TABLET (FP) PO SCH (10:30)
[2017-05-07] MEDS: ARIPiprazole 10 MG TABLET PO SCH (10:30)
[2017-05-07] MEDS: ENALAPRIL MALEATE 10 MG TABLET (FP) PO SCH (10:30)
[2017-05-07] MEDS: QUEtiapine FUMARATE 100 MG TABLET (FP) PO SCH (21:40)
[2017-05-07] MEDS: THIAMINE HCL 100 MG TABLET (FP) PO SCH (21:40)
[2017-05-08] MEDS: ARIPiprazole 10 MG TABLET PO SCH (10:24)
[2017-05-08] MEDS: ENALAPRIL MALEATE 10 MG TABLET (FP) PO SCH (10:24)
[2017-05-08] MEDS: PRENATAL VITAMINS W/ FOLIC ACID TABLET (FP) PO SCH (10:24)
[2017-05-08] MEDS: QUEtiapine FUMARATE 100 MG TABLET (FP) PO SCH (21:38)
[2017-05-08] MEDS: THIAMINE HCL 100 MG TABLET (FP) PO SCH (21:38)
[2017-05-09] MEDS: PRENATAL VITAMINS W/ FOLIC ACID TABLET (FP) PO SCH (10:42)
[2017-05-09] MEDS: ENALAPRIL MALEATE 10 MG TABLET (FP) PO SCH (10:42)
[2017-05-09] MEDS: ARIPiprazole 10 MG TABLET PO SCH (10:42)
--- NOTE | 2017-05-09 14:45 | PN ---
Psychiatric Progress Note Vital Signs: Vital Signs Period Temp Pulse Resp BP Sys/Maya Pulse Ox Last 24 Hr 97.9 F 66 18-18 133/81 Date of Session: 05/09/17 Chief Complaint:: porgress update HPI: Patient is addressing alcohol, cocaine, nicotine dependence comorbid bipolar I disorder. ROS: HTN, Bronchial asthma medically managed Current Medications: Active Medications Generic Name Dose Route Start Last Admin Trade Name Freq PRN Reason Stop Dose Admin Acetaminophen 650 mg 04/22/17 21:38 Tylenol - PO Q4H PRN FEVER Al Hydroxide/Mg Hydroxide 30 ml 04/22/17 21:38 Mylanta Oral Suspension - PO Q6H PRN DYSPEPSIA Aripiprazole 10 mg 04/24/17 10:00 05/09/17 10:42 Abilify PO 10 mg DAILY LIAT Administration Enalapril Maleate 10 mg 04/23/17 10:00 05/09/17 10:42 Vasotec - PO 10 mg DAILY LIAT Administration Eucalyptus/Menthol/Phenol/Sorbitol 1 each 04/22/17 21:38 Cepastat Lozenge - MM Q4H PRN SORE THROAT Guaifenesin 10 ml 04/22/17 21:38 Robitussin Dm - PO Q6H PRN COUGH Hydroxyzine Pamoate 50 mg 04/22/17 21:38 Vistaril - PO Q4H PRN AGITATION Ibuprofen 400 mg 04/22/17 21:38 Motrin - PO Q6H PRN PAIN LEVEL 4-6 Loperamide HCl 4 mg 04/22/17 21:38 Imodium - PO Q6H PRN DIARRHEA Magnesium Citrate 300 ml 04/22/17 21:38 Citroma - PO Q48H PRN CONSTIPATION Magnesium Hydroxide 30 ml 04/22/17 21:38 Milk Of Magnesia - PO DAILY PRN CONSTIPATION Ondansetron HCl 4 mg 04/26/17 10:16 Zofran Odt - SL Q8H PRN NAUSEA AND/OR VOMITING Multivit/Folic Acid/Iron 1 tab 04/23/17 10:00 05/09/17 10:42 Vitamins (Sjr) - PO 1 tab DAILY LIAT Administration Pseudoephedrine/Triprolidine 1 combo 04/22/17 21:38 Actifed - PO TID PRN NASAL CONGESTION Quetiapine Fumarate 100 mg 05/05/17 22:00 05/08/17 21:38 Seroquel - PO 100 mg HS LIAT Administration Thiamine HCl 100 mg 04/22/17 22:00 05/08/17 21:38 Vitamin B1 - PO 100 mg HS LIAT Administration Current Side Effect: No Lab tests ordered: No Lab tests reviewed: Yes Provider note:: Patient continues to c/o insomnia, thinking a lot and more anxious when he can't sleep, mood swings, reports was on 200 mg po hs, discussed indications and propreties of seroquel with the patient will increase 200 mg , continue to monitor progress. Total face to face time:: 15 Mental Status Exam - Mental Status Exam Alert and Oriented to: Time, Place, Person Cognitive Function: Good Patient Appearance: Well Groomed Mood: Anxious Affect: Appropriate, Mood Congruent Patient Behavior: Appropriate, Cooperative Speech Pattern: Clear, Appropriate Voice Loudness: Normal Thought Process: Intact, Goal Oriented Thought Disorder: Not Present Hallucinations: Denies Suicidal Ideation: Denies Homicidal Ideation: Denies Insight/Judgement: Fair Sleep: Poorly, Difficulty falling asleep Appetite: Fair Muscle strength/Tone: Normal Gait/Station: Normal Psychiatric Treatment Plan - Problem List (1) Alcohol dependence Current Visit: Yes (2) Cocaine dependence Current Visit: Yes (3) Bipolar disorder Current Visit: Yes Qualifiers: Active/Remission status: remission status unspecified Qualified Code(s): F31.9 - Bipolar disorder, unspecified Comment: Self-report.On abipennyy.Current OPD care at the [facility] in [facility]. (4) Nicotine dependence Current Visit: Yes Qualifiers: Nicotine product type: cigarettes Substance use status: uncomplicated Qualified Code(s): F17.210 - Nicotine dependence, cigarettes, uncomplicated (5) Hypertension Current Visit: Yes Qualifiers: Hypertension type: unspecified Qualified Code(s): I10 - Essential (primary ) hypertension
[2017-05-09] MEDS: QUEtiapine FUMARATE 200 MG TABLET PO SCH (21:43)
[2017-05-09] MEDS: THIAMINE HCL 100 MG TABLET (FP) PO SCH (21:44)
[2017-05-10] MEDS: ARIPiprazole 10 MG TABLET PO SCH (10:26)
[2017-05-10] MEDS: PRENATAL VITAMINS W/ FOLIC ACID TABLET (FP) PO SCH (10:26)
[2017-05-10] MEDS: ENALAPRIL MALEATE 10 MG TABLET (FP) PO SCH (10:26)
[2017-05-10] MEDS: QUEtiapine FUMARATE 200 MG TABLET PO SCH (21:34)
[2017-05-10] MEDS: THIAMINE HCL 100 MG TABLET (FP) PO SCH (21:34)
[2017-05-11] MEDS: ARIPiprazole 10 MG TABLET PO SCH (10:37)
[2017-05-11] MEDS: ENALAPRIL MALEATE 10 MG TABLET (FP) PO SCH (10:37)
[2017-05-11] MEDS: PRENATAL VITAMINS W/ FOLIC ACID TABLET (FP) PO SCH (10:37)
[2017-05-11] MEDS: THIAMINE HCL 100 MG TABLET (FP) PO SCH (21:38)
[2017-05-11] MEDS: QUEtiapine FUMARATE 200 MG TABLET PO SCH (21:38)
[2017-05-12] MEDS: ARIPiprazole 10 MG TABLET PO SCH (10:30)
[2017-05-12] MEDS: ENALAPRIL MALEATE 10 MG TABLET (FP) PO SCH (10:30)
[2017-05-12] MEDS: PRENATAL VITAMINS W/ FOLIC ACID TABLET (FP) PO SCH (10:30)
[2017-05-12] MEDS: THIAMINE HCL 100 MG TABLET (FP) PO SCH (21:32)
[2017-05-12] MEDS: QUEtiapine FUMARATE 200 MG TABLET PO SCH (21:32)
[2017-05-13] MEDS: ARIPiprazole 10 MG TABLET PO SCH (10:30)
[2017-05-13] MEDS: ENALAPRIL MALEATE 10 MG TABLET (FP) PO SCH (10:30)
[2017-05-13] MEDS: PRENATAL VITAMINS W/ FOLIC ACID TABLET (FP) PO SCH (10:30)
[2017-05-13] MEDS: THIAMINE HCL 100 MG TABLET (FP) PO SCH (21:39)
[2017-05-13] MEDS: QUEtiapine FUMARATE 200 MG TABLET PO SCH (21:39)
[2017-05-14] MEDS: PRENATAL VITAMINS W/ FOLIC ACID TABLET (FP) PO SCH (10:32)
[2017-05-14] MEDS: ENALAPRIL MALEATE 10 MG TABLET (FP) PO SCH (10:32)
[2017-05-14] MEDS: ARIPiprazole 10 MG TABLET PO SCH (10:32)
[2017-05-14] MEDS: QUEtiapine FUMARATE 200 MG TABLET PO SCH (22:06)
[2017-05-14] MEDS: THIAMINE HCL 100 MG TABLET (FP) PO SCH (22:06)
[2017-05-15] MEDS: ARIPiprazole 10 MG TABLET PO SCH (10:48)
[2017-05-15] MEDS: PRENATAL VITAMINS W/ FOLIC ACID TABLET (FP) PO SCH (10:48)
[2017-05-15] MEDS: ENALAPRIL MALEATE 10 MG TABLET (FP) PO SCH (10:48)
[2017-05-15] MEDS: THIAMINE HCL 100 MG TABLET (FP) PO SCH (21:39)
[2017-05-15] MEDS: QUEtiapine FUMARATE 200 MG TABLET PO SCH (21:39)
[2017-05-16] MEDS: ARIPiprazole 10 MG TABLET PO SCH (10:46)
[2017-05-16] MEDS: ENALAPRIL MALEATE 10 MG TABLET (FP) PO SCH (10:46)
[2017-05-16] MEDS: PRENATAL VITAMINS W/ FOLIC ACID TABLET (FP) PO SCH (10:46)
[2017-05-16] MEDS: THIAMINE HCL 100 MG TABLET (FP) PO SCH (21:43)
[2017-05-16] MEDS: QUEtiapine FUMARATE 200 MG TABLET PO SCH (21:43)
[2017-05-17] MEDS: PRENATAL VITAMINS W/ FOLIC ACID TABLET (FP) PO SCH (10:46)
[2017-05-17] MEDS: ARIPiprazole 10 MG TABLET PO SCH (10:47)
[2017-05-17] MEDS: ENALAPRIL MALEATE 10 MG TABLET (FP) PO SCH (10:47)
[2017-05-17] MEDS: QUEtiapine FUMARATE 200 MG TABLET PO SCH (21:26)
[2017-05-17] MEDS: THIAMINE HCL 100 MG TABLET (FP) PO SCH (21:26)
[2017-05-18] MEDS: PRENATAL VITAMINS W/ FOLIC ACID TABLET (FP) PO SCH (10:27)
[2017-05-18] MEDS: ARIPiprazole 10 MG TABLET PO SCH (10:28)
[2017-05-18] MEDS: ENALAPRIL MALEATE 10 MG TABLET (FP) PO SCH (10:28)
[2017-05-18] MEDS: QUEtiapine FUMARATE 200 MG TABLET PO SCH (21:39)
[2017-05-18] MEDS: THIAMINE HCL 100 MG TABLET (FP) PO SCH (21:39)
[2017-05-19] MEDS: ARIPiprazole 10 MG TABLET PO SCH (10:05)
[2017-05-19] MEDS: ENALAPRIL MALEATE 10 MG TABLET (FP) PO SCH (10:05)
[2017-05-19] MEDS: PRENATAL VITAMINS W/ FOLIC ACID TABLET (FP) PO SCH (10:05)
[2017-05-19] MEDS: THIAMINE HCL 100 MG TABLET (FP) PO SCH (21:47)
[2017-05-19] MEDS: QUEtiapine FUMARATE 200 MG TABLET PO SCH (21:47)
[2017-05-20] MEDS: PRENATAL VITAMINS W/ FOLIC ACID TABLET (FP) PO SCH (09:55)
[2017-05-20] MEDS: ENALAPRIL MALEATE 10 MG TABLET (FP) PO SCH (09:57)
[2017-05-20] MEDS: ARIPiprazole 10 MG TABLET PO SCH (09:57)
[2017-05-20] MEDS: THIAMINE HCL 100 MG TABLET (FP) PO SCH (21:30)
[2017-05-20] MEDS: QUEtiapine FUMARATE 200 MG TABLET PO SCH (21:31)
[2017-05-21] MEDS: ENALAPRIL MALEATE 10 MG TABLET (FP) PO SCH (10:26)
[2017-05-21] MEDS: PRENATAL VITAMINS W/ FOLIC ACID TABLET (FP) PO SCH (10:26)
[2017-05-21] MEDS: ARIPiprazole 10 MG TABLET PO SCH (10:26)
[2017-05-21] MEDS: THIAMINE HCL 100 MG TABLET (FP) PO SCH (21:30)
[2017-05-21] MEDS: QUEtiapine FUMARATE 200 MG TABLET PO SCH (21:30)
[2017-05-22] MEDS: PRENATAL VITAMINS W/ FOLIC ACID TABLET (FP) PO SCH (10:13)
[2017-05-22] MEDS: ENALAPRIL MALEATE 10 MG TABLET (FP) PO SCH (10:13)
[2017-05-22] MEDS: ARIPiprazole 10 MG TABLET PO SCH (10:13)
[2017-05-22] MEDS: THIAMINE HCL 100 MG TABLET (FP) PO SCH (21:39)
[2017-05-22] MEDS: QUEtiapine FUMARATE 200 MG TABLET PO SCH (21:39)
[2017-05-23] MEDS: ARIPiprazole 10 MG TABLET PO SCH (10:21)
[2017-05-23] MEDS: ENALAPRIL MALEATE 10 MG TABLET (FP) PO SCH (10:21)
[2017-05-23] MEDS: PRENATAL VITAMINS W/ FOLIC ACID TABLET (FP) PO SCH (10:22)
[2017-05-23] MEDS: QUEtiapine FUMARATE 200 MG TABLET PO SCH (21:32)
[2017-05-23] MEDS: THIAMINE HCL 100 MG TABLET (FP) PO SCH (21:32)
[2017-05-24] MEDS: ENALAPRIL MALEATE 10 MG TABLET (FP) PO SCH (10:14)
[2017-05-24] MEDS: ARIPiprazole 10 MG TABLET PO SCH (10:14)
[2017-05-24] MEDS: PRENATAL VITAMINS W/ FOLIC ACID TABLET (FP) PO SCH (10:14)
[2017-05-24] MEDS: THIAMINE HCL 100 MG TABLET (FP) PO SCH (21:34)
[2017-05-24] MEDS: QUEtiapine FUMARATE 200 MG TABLET PO SCH (21:34)
[2017-05-25 06:59] VITALS: BP 132/77; PULSE 80; TEMP 97.6
--- NOTE | 2017-05-25 10:13 | PN ---
Psychiatric Progress Note Vital Signs: Vital Signs Period Temp Pulse Resp BP Sys/Maya Pulse Ox Last 24 Hr 97.6 F 80 18-18 132/77 Date of Session: 05/25/17 Chief Complaint:: discharge visit HPI: Patient is addressing alcohol, cocaine, nicotine dependence comorbid bipolar I disorder. ROS: HTN, Bronchial asthma medically managed. Current Medications: Active Medications Generic Name Dose Route Start Last Admin Trade Name Freq PRN Reason Stop Dose Admin Acetaminophen 650 mg 04/22/17 21:38 Tylenol - PO Q4H PRN FEVER Al Hydroxide/Mg Hydroxide 30 ml 04/22/17 21:38 Mylanta Oral Suspension - PO Q6H PRN DYSPEPSIA Aripiprazole 10 mg 04/24/17 10:00 05/24/17 10:14 Abilify PO 10 mg DAILY LIAT Administration Enalapril Maleate 10 mg 04/23/17 10:00 05/24/17 10:14 Vasotec - PO 10 mg DAILY LIAT Administration Eucalyptus/Menthol/Phenol/Sorbitol 1 each 04/22/17 21:38 Cepastat Lozenge - MM Q4H PRN SORE THROAT Guaifenesin 10 ml 04/22/17 21:38 Robitussin Dm - PO Q6H PRN COUGH Hydroxyzine Pamoate 50 mg 04/22/17 21:38 Vistaril - PO Q4H PRN AGITATION Ibuprofen 400 mg 04/22/17 21:38 Motrin - PO Q6H PRN PAIN LEVEL 4-6 Loperamide HCl 4 mg 04/22/17 21:38 Imodium - PO Q6H PRN DIARRHEA Magnesium Citrate 300 ml 04/22/17 21:38 Citroma - PO Q48H PRN CONSTIPATION Magnesium Hydroxide 30 ml 04/22/17 21:38 Milk Of Magnesia - PO DAILY PRN CONSTIPATION Ondansetron HCl 4 mg 04/26/17 10:16 Zofran Odt - SL Q8H PRN NAUSEA AND/OR VOMITING Multivit/Folic Acid/Iron 1 tab 04/23/17 10:00 05/24/17 10:14 Vitamins (Sjr) - PO 1 tab DAILY LIAT Administration Pseudoephedrine/Triprolidine 1 combo 04/22/17 21:38 Actifed - PO TID PRN NASAL CONGESTION Quetiapine Fumarate 200 mg 05/09/17 22:00 05/24/17 21:34 Seroquel - PO 200 mg HS LIAT Administration Thiamine HCl 100 mg 04/22/17 22:00 05/24/17 21:34 Vitamin B1 - PO 100 mg HS LIAT Administration Current Side Effect: No Lab tests ordered: No Lab tests reviewed: Yes Provider note:: Patient has completed today hi streatment an dmet his goals, will continue to [facility]. Patient gained insights [facility] of supports to prevent relapses. He was encouraged to take medications as direceted and to f/u with his medical appointments. Patient will f/u at [facility] aith his psychiatrict. Seroquel and Abilify well tolerated, scripts e-tranferred to his pharmacy. Patient is stable for discharge today. Total face to face time:: 25 Mental Status Exam - Mental Status Exam Alert and Oriented to: Time, Place, Person Cognitive Function: Good Patient Appearance: Well Groomed Mood: Hopeful Affect: Appropriate, Mood Congruent Patient Behavior: Appropriate, Cooperative Speech Pattern: Clear, Appropriate Voice Loudness: Normal Thought Process: Goal Oriented Thought Disorder: Not Present Hallucinations: None, Denies Suicidal Ideation: Denies Homicidal Ideation: Denies Insight/Judgement: Fair Sleep: Fair Appetite: Good Muscle strength/Tone: Normal Gait/Station: Normal Psychiatric Treatment Plan - Problem List (1) Alcohol dependence Current Visit: Yes (2) Cocaine dependence Current Visit: Yes (3) Bipolar disorder Current Visit: Yes Qualifiers: Active/Remission status: remission status unspecified Qualified Code(s): F31.9 - Bipolar disorder, unspecified Comment: Self-report.On abilify.Current OPD care at the [facility] in [facility]. (4) Nicotine dependence Current Visit: Yes Qualifiers: Nicotine product type: cigarettes Substance use status: uncomplicated Qualified Code(s): F17.210 - Nicotine dependence, cigarettes, uncomplicated (5) Hypertension Current Visit: Yes Qualifiers: Hypertension type: unspecified Qualified Code(s): I10 - Essential (primary ) hypertension
[2017-05-25] MEDS: ARIPiprazole 10 MG TABLET PO SCH (10:42)
[2017-05-25] MEDS: PRENATAL VITAMINS W/ FOLIC ACID TABLET (FP) PO SCH (10:42)
[2017-05-25] MEDS: ENALAPRIL MALEATE 10 MG TABLET (FP) PO SCH (10:42)
== END 2017-05-25 11:10 | disposition home or self-care (01) | DRG 895 ==
LOC: YASAS 12:56 → Y3N 18:16 → Y5N 04-27 13:54
PROVIDERS: ADMIT Internal Medicine; ATTEND Psychiatry & Neurology Psychiatry
PROC: HZ42ZZZ Group Counseling for Substance Abuse Treatment, Cognitive-Behavioral (ICD-10-PCS; principal; 2017-04-22)
PROC: HZ2ZZZZ Detoxification Services for Substance Abuse Treatment (ICD-10-PCS; 2017-04-22)
DX: F10.20 Alcohol dependence, uncomplicated (principal); F14.20 Cocaine dependence, uncomplicated; F17.210 Nicotine dependence, cigarettes, uncomplicated; F31.9 Bipolar disorder, unspecified; I10 Essential (primary) hypertension
CPT/HCPCS: 36415; 80053; 81003; 85027; 86593; 93005; 93010